=== PATIENT | female | born 1990 | race Caucasian/White ===

== ENCOUNTER 2025-05-23 10:03 | Emergency (ER) | payer OTHER, SELFPAY ==
[2025-05-23 10:05] VITALS: BP 107/71
--- NOTE | 2025-05-23 10:40 | ED.GENMED ---
History of Present Illness
General
Chief Complaint: Urinary Symptoms
Time Seen by Provider: 05/23/25 10:32
History of Present Illness
History of Present Illness:
34-year-old female presents to the emergency department for evaluation of flulike symptoms, general malaise, body aches, and low back pain. She reports that she has felt increasingly unwell over the past week however in the past 24 hours the body
aches and systemic symptoms began. Denies any associated vomiting or diarrhea. No objective fever. Denies hematuria, dysuria, or urgency.
Past History
Past History
ED Past Medical History: None
ED Past Surgical History: None
Social History
Tobacco: Non-smoker
Review of Systems
Review of Systems
Allergies reviewed?: Yes
All Other Systems: ROS reviewed and negative except as documented in HPI and ROS
Phy Exam
Physical Exam
Physical Exam:
GEN: Well appearing, NAD, WDWN
HEENT: Oral mucosa moist, no scleral icterus
Cardiac: Regular rate and rhythm, no murmurs
Lung: No respiratory distress, no tachypnea, lungs clear to auscultation
Abdomen: Soft, grossly nontender, bilateral CVA tenderness noted
MSK: No gross deformity or injuries
Skin: Good color, no pallor or jaundice, no rashes
Neuro: AO x3, moves all extremities freely
Psych: Calm, cooperative
Course
Orders/Labs/Results
Orders:
Orders
05/23/25 10:11
Urinalysis Reflex To Culture Urgent
Date Specimen was Collected: 05/23/25
Time Specimen was Collected: 10:07
Urine Microscopic Reflex Cult Urgent
05/23/25 10:39
0.9% Sodium Chloride 1000 ml [Nss] 1,000 ml IV BOLUS
Test Result ONCE
05/23/25 11:51
COVID-19 Antigen Urgent
Source: Nasal Swab
Complete Blood Count/With Diff Urgent
Comprehensive Metabolic Panel Urgent
HCG, Serum Qualitative Screen Urgent
Influenza A+B Rapid Molecular Urgent
ELOINA Source: Nasal Swab
Specimen Description:
Abnormal Lab Results
05/23/25 05/23/25
10:11 11:51
Absolute Lymphs (auto) 0.5 L 10^3/uL
(1.2-3.4)
Neutrophils % 86.6 H %
(42.2-75.2)
Lymphocytes % 7.3 L %
(20.5-51.1)
Sodium 133 L mmol/L
(135-145)
Glucose 105 H mg/dl
(70-99)
Urine Ketones 2+ A
(Negative)
Ur Occult Blood Reflex 3+ A
(Negative)
Urine Bacteria (Reflex) Few A
(Negative)
05/23/25 11:51
05/23/25 11:51
Vital Signs
Initial and Last Documented VS:
Initial Vital Signs
Temp Pulse Resp BP Pulse Ox
98.6 F 96 16 107/71 100
05/23/25 10:05 05/23/25 10:05 05/23/25 10:05 05/23/25 10:05 05/23/25 10:05
Last Documented Vital Signs
Temp Pulse Resp BP Pulse Ox
98.6 F 85 16 118/74 98
05/23/25 10:05 05/23/25 13:03 05/23/25 10:05 05/23/25 13:03 05/23/25 13:03
MDM/Problems Addressed
MDM/Problems Addressed:
Patient's labs are reassuring, no evidence of UTI on urinalysis. COVID and flu test negative. Likely self-limited viral syndrome, no respiratory symptoms warranting chest x-ray.
*Pulse Oximetry
SaO2: 100
Oxygen Mode of Delivery: Room air
Patient hypoxic: no
*Critical Care Note
Total Time (30-74mins, 75-104mins- exclusive of procedures): Not Applicable
ED Attending Note
-
Portions of this chart may have been created with voice recognition software.� Occasional wrong word or��sound alike� substitutions may have occurred due to the inherent limitations of voice recognition software.
Discharge Plan
Departure
Patient Disposition: Home (Routine Discharge)
Date of Disposition: 05/23/25
Time of Disposition: 12:28
Patient with high blood pressure during this ER visit?: No
Discharge Problem:
Acute viral syndrome
Instructions: Muscle, joint, and bone pain (DC)
Prescriptions:
No Action
prenat.vits,shayna,[id number] Tablet
1 tab PO DAILY
acetaminophen 325 mg Tablet
650 mg PO Q4HPRN PRN (Reason: mild pain) Qty: 0 0RF
sennosides-docusate sodium 8.6-50 mg Tablet
1 tab PO DAILYPRN PRN (Reason: constipation) Qty: 0 0RF
ibuprofen 600 mg Tablet
600 mg PO Q6HPRN PRN (Reason: moderate pain/cramps) Qty: 45 0RF
Referrals:
Purvi Wellington PA-C [Family Provider, Family Practice]
Interventions
Interventions:
*Risk Screen - Suicide Last Done: 05/23/25 10:05
*General Assessment Last Done: 05/23/25 13:04
*Neglect/Abuse Screening Last Done: 05/23/25 10:05
*ED- Fall Risk Assessment Last Done: 05/23/25 12:07
*ED COVID-19 Vaccine History Last Done: 05/23/25 12:07
*ED Influenza Vaccine History Last Done: 05/23/25 12:07
*Nursing Disposition Last Done: 05/23/25 13:04
ED-Female Genitourinary Assessment Last Done: 05/23/25 12:07
Discharge Date and Time
Discharge Date/Time: 05/23/25 13:06
Print Language: [place]ET[place]ESE
[2025-05-23 10:52] LABS: Urine Character Clear (Clear)
[2025-05-23 11:13] LABS: Urine Red Blood Cell 0-2 /HPF (0-2); Urine White Cell 0-2 /HPF (0-5)
[2025-05-23] MEDS: NSS 1000 IV (11:57)
[2025-05-23 12:07] LABS: Hematocrit 37.9 % (37.0-47.0); Hemoglobin 12.8 g/dL (12.0-16.0); Mean Corp Hgb Conc. 33.8 g/dL (33.0-37.0); Mean Corpuscular Volume 89.2 fL (81.0-99.0); Nucleated Red Blood Cells % 0 %; Platelet Count 215 10^3/uL (130-400); Red Cell Dist. Width 12.2 % (11.5-14.5)
[2025-05-23 12:17] LABS: HCG, Serum Qualitative Screen Negative
[2025-05-23 12:20] LABS: COVID-19 Antigen Negative (Negative)
[2025-05-23 12:21] LABS: ALT (SGPT) 15 U/L (0-35); AST (SGOT) 20 U/L (14-36); Albumin 4.4 g/dl (3.5-5.0); Alkaline Phosphatase 42 U/L (38-126); Blood Urea Nitrogen 9 mg/dl (7-17); Calcium 8.7 mg/dl (8.4-10.2); Carbon Dioxide 23 mmol/L (22-30); Chloride 105 mmol/L (98-107); Glucose 105 mg/dl (70-99); Potassium 4.0 mmol/L (3.5-5.1); Sodium 133 mmol/L (135-145); Total Protein 7.1 g/dl (6.3-8.2); eGFR > 60.00
[2025-05-23 13:03] VITALS: BP 118/74
== END 2025-05-23 13:06 | disposition home or self-care (01) ==
LOC: EMR 10:03
PROVIDERS: Physician Assistant; EMERGENCY PHYSICIAN Emergency Medicine; FAMILY PHYSICIAN Physician Assistant Medical
DX: B34.9 Viral infection, unspecified (principal)
CPT/HCPCS: 99284; 96360; 80053; 81003; 81015; 84703; 85025; 87502; 87811